=== PATIENT | male | born 1985 ===

== ENCOUNTER 2020-05-08 12:43 | Emergency (ER) | payer SELFPAY ==
[~2020-05-08] VITALS: Ht 185.4 cm; Wt 97.5 kg
[2020-05-08 12:45] VITALS: BP 139/91
[2020-05-08] MEDS ORDERED: KETOROLAC 60 MG/2 ML VIAL IM ONE (13:20)
--- NOTE | 2020-05-08 13:21 | NUR ---
34/M C/O RECTAL PAIN/BLEEDING X 1 WK---BRIGHT RED BLOOD WHEN WIPING AFTER BM PAIN UPON SITTING OR DEFECATING--- DENIES N/V, CONSTIPATION, DIZZINESS, WEAKNESS. STATES WAS GIVEN LAXATIVES A MONTH AGO BUT CURRENTLY DENIES CONSTIPATION OR DIARRHEA. HX--HEMORRHOIDS
--- NOTE | 2020-05-08 13:44 | NUR ---
Patient discharged with v/s stable. Written and verbal after care instructions given and explained. Patient alert, oriented and verbalized understanding of instructions. Ambulatory with steady gait. All questions addressed prior to discharge. ID band removed. Patient advised to follow up with PMD. Rx of MINERAL OIL, MOTRIN, HYDROCORTISONE RECTAL ENEMA given. Patient educated on indication of medication including possible reaction and side effects. Opportunity to ask questions provided and answered.
[2020-05-08 13:45] VITALS: BP 139/91
== END 2020-05-08 13:44 | disposition home or self-care (01) ==
LOC: MED 12:43
DX: K64.4 Residual hemorrhoidal skin tags (principal)
CPT/HCPCS: 96372; 99283; J1885